=== PATIENT | female | born 1995 | race Two or more races ===

== ENCOUNTER 2018-04-04 21:21 | Observation (INO) | payer MEDICAID ==
[~2018-04-04] VITALS: Ht 152.4 cm; Wt 68.0 kg
[2018-04-05] MEDS ORDERED: PNV1TABL50 PO (00:53)
[2018-04-05] MEDS ORDERED: CALC-1042 PO (00:53)
[2018-04-05] MEDS ORDERED: FOLI-43 PO (00:53)
[2018-04-05] MEDS ORDERED: FERR325T23 MT (00:53)
== END 2018-04-05 01:15 | disposition home or self-care (01) ==
LOC: 8 EST LDRP 21:21
PROVIDERS: ADMIT Obstetrics & Gynecology; ATTEND Obstetrics & Gynecology
DX: O36.8120 Decreased fetal movements, second trimester, not applicable or unspecified (principal); O26.892 Other specified pregnancy related conditions, second trimester; R10.10 Upper abdominal pain, unspecified; M54.9 Dorsalgia, unspecified; Z3A.27 27 weeks gestation of pregnancy
CPT/HCPCS: 76805; 76818; 99281; G0378

== ENCOUNTER 2018-06-20 09:42 | Observation (INO) | payer MEDICAID ==
[~2018-06-20] VITALS: Ht 154.9 cm; Wt 77.1 kg
[~2018-06-20 09:42] MED LIST: CALC-1042 PO; FERR325T23 MT; FOLI-43 PO; PNV1TABL50 PO
[2018-06-20] MEDS ORDERED: AM500 PO (10:15)
== END 2018-06-20 11:00 | disposition home or self-care (01) ==
LOC: 8 EST LDRP 09:42
PROVIDERS: ADMIT Obstetrics & Gynecology; ATTEND Obstetrics & Gynecology
DX: O42.92 Full-term premature rupture of membranes, unspecified as to length of time between rupture and onset of labor (principal); Z3A.38 38 weeks gestation of pregnancy
CPT/HCPCS: 99281; G0378